=== PATIENT | male | born 2000 | race Caucasian/White ===

== ENCOUNTER 2020-02-27 13:45 | Emergency (ER) | payer MEDICAID, SELFPAY ==
[2020-02-27 14:00] VITALS: BP 145/92; PULSE 82; RESP 19; TEMP 36.9; O2SAT 98; BMI 25.0
--- NOTE | 2020-02-27 14:11 | HMH.EDUTC ---
[facility] [place] Clinical Impression: COVID-19 virus test result unknown Disposition: Home, Self-Care Condition on Discharge: Good Instructions: Preventing the Spread of Coronavirus Discharge Instructions Referrals: Swapna Friedman MD [Primary Care Provider] - Time of Disposition: 14:16 Medical Decision Making - Jake Inquiry Pt receiving controlled substance: No Vital Signs: 02/27/20 14:00 Temperature 98.4 F Temperature Source Oral Pulse Rate [Right Brachial] 82 Respiratory Rate 19 Blood Pressure [Right Arm] 145/92 H Blood Pressure Mean [Right Arm] 109 Blood Pressure Source [Right Arm] Automatic Cuff Blood Pressure Position [Right Arm] Sitting 02 Sat by Pulse Oximetry 98 Oxygen Delivery Method Room Air Orders (Tests/Meds): ORDERS Category Date Time Status Covid-19 Nasal PCR Sendout [facility] 02/27/20 13:52 Ordered [facility] [place] HPI - General Chief complaint: Urgent [facility] Stated complaint: covid test Time Seen by Provider: 02/27/20 14:11 Mode of Arrival: Ambulatory Source of Information: Patient Limitations: No Limitations Description of Symptoms (Recalled from Triage Doc. by RN): PATIENT REQUESTING COVID TEST. DENIES SYMPTOMS OR EXPOSURE HEENT Symptoms (Recalled from RN notes): No Resp Symptoms (Recalled from RN notes): No Skin Symptoms (Recalled from RN notes): No MS Symptoms (Recalled from RN notes): No Functional Status (Recalled from RN notes): WNL - History of Present Illness Provider Complaint: 19 yr old male presents for covid test. pt states no symptoms. - Related Data Allergies Allergy/AdvReac Type Severity Reaction Status Date / Time No Known Allergies Allergy Verified 02/27/20 14:10 - Worker's Comp Is this a Worker's Comp case?: No [facility] History - Hepatitis A Screen Drug use history?: No High risk sexual behaviors?: No History of sexually transmitted infection?: No Currently employed?: No Childcare worker?: No Do you have indoor plumbing?: Yes Do you have electricity?: Yes Attestation statement:: This patient has been screened for Hepatitis A risk factors. I have reviewed the patient's past medical history: Yes - Social History Alcohol Intake: never Occupational Status: other ROS Obtained: Yes Systems reviewed as appropriate & no additional complaints - Constitutional Constitutional: Reports system reviewed and no additional complaints, except as docu, Denies body ache, Denies fever(s) - Eyes Eyes: Reports system reviewed and no additional complaints, except as docu, Denies itchy eyes - ENT Ears, Nose, Mouth, and Throat: Reports system reviewed and no additional complaints, except as docu, Denies sore throat - Cardiovascular Cardiovascular: Reports system reviewed and no additional complaints, except as docu, Denies chest pain - Respiratory Respiratory: Yes system reviewed and no additional complaints, except as docu, No change in phlegm color - Gastrointestinal Gastrointestingal: Reports: system reviewed and no additional complaints, except as docu. Denies: bloating - Genitourinary Male Genitourinary: Reports system reviewed and no additional complaints, except as docu - Musculoskeletal Musculoskeletal: Reports system reviewed and no additional complaints, except as docu, Denies decreased muscle mass - Integumentary/Breasts Skin/Breast: Reports system reviewed and no additional complaints, except as docu, Denies rash - Neurologic Neurologic: Reports system reviewed and no additional complaints, except as docu, Denies dizziness - Endocrine Endocrine: Reports system reviewed and no additional complaints, except as docu, Denies fatigue - Hematologic/Lymphatic Henatologic/Lymphatic: Reports system reviewed and no additional complaints, except as docu, Denies lymphadenopathy - Allergic/Immunologic Allergic/Immunologic: Reports system reviewed and no additional complaints, except as docu, Denies itchy eyes Physical Exam -
[2020-02-27 14:17] VITALS: BP 145/92; PULSE 82; RESP 19; TEMP 36.9; O2SAT 98
[2020-02-29 10:16] LABS: Covid-19 Nasal PCR Sendout UK Not Detected
== END 2020-02-27 14:20 | disposition home or self-care (01) ==
PROVIDERS: Emergency Provider Nurse Practitioner Family; PCP Family Medicine
DX: Z20.828 Contact with and (suspected) exposure to other viral communicable diseases (principal)
CPT/HCPCS: 99201; U0003

== ENCOUNTER 2020-08-25 11:46 | Emergency (ER) | payer OTHER, SELFPAY ==
[2020-08-25 11:50] VITALS: BP 140/78; PULSE 102; RESP 22; TEMP 39.1; O2SAT 97; BMI 28.3
--- NOTE | 2020-08-25 12:21 | HMH.EDUTC ---
[facility] [place] Clinical Impression: Viral syndrome, Fever of unknown origin Disposition: Home, Self-Care Condition on Discharge: Good Instructions: DI for Viral Syndrome, DI for Fever (Symptom) -- Adult Additional Instructions: *Monitor Temp, Over the counter Motrin or Tylenol as directed/as needed Tylenol every 4 hours and Motrin every 6 hours (as long as your family doctor has told you that you can take it) for fever or pain. and straight to ER if unable to lower temp less than 101.0 after medication given *Warm salt water gargles may help to soothe the throat *Throat Lozenges *Warm fluids like tea with honey may help to soothe the throat *Sleep elevated *Humidifier/Vaporizer Your throat swab was sent for culture. Those results are typically sent to your primary care. Be sure to follow up in 2-3 days with your family doctor/primary care physician if no improvement so they can review those result and treat if necessary. If you don?t have a primary care doctor, I recommend you get one but in the mean time, you will have to return to a walk in clinic Follow up IMMEDIATELY for new or worsening symptoms or no Noticeable improvement over the next 48-72 hours. 911 for difficulty breathing or swallowing You were tested for today for COVID19 your test result should be back in the next 24-48 hours, you may call to the [facility] to see if your test results are back in the next 48 hours [phone] [facility] hours are 9am-9pm You was given a handout with instructions for Self Quarantine and Self isolation for while you wait on test results and what to do if they are positive If you are positive the Health Dept will be contacting you also Prescriptions: Ondansetron [Zofran 4mg ODT] 4 mg PO TIDP PRN #10 tab PRN Reason: Nausea Transmission Status: Received by [facility]/pharmacy #[id number] Referrals: Swapna Friedman MD [Primary Care Provider] - As needed Forms: Work/School Release Time of Disposition: 17:04 Medical Decision Making - Jake Inquiry Pt receiving controlled substance: No Jake was queried for this patient: No Vital Signs: 08/25/20 11:50 08/25/20 12:59 Temperature 102.3 F H 100.2 F H Temperature Source Oral Oral Pulse Rate 102 H Pulse Rate [Right Brachial] 102 H Respiratory Rate 22 22 Blood Pressure 140/78 Blood Pressure [Right Arm] 140/78 Blood Pressure Mean [Right Arm] 98 Blood Pressure Source [Right Arm] Automatic Cuff Blood Pressure Position [Right Arm] Sitting 02 Sat by Pulse Oximetry 97 Oxygen Delivery Method Room Air - Lab Data Lab results reviewed: Yes: I reviewed the patient's lab results. Lab Results 08/25/20 12:00: Influenza Type A Ag Negative, Influenza Type B Ag Negative 08/25/20 12:00: Strep Scn Rapid Clinic Negative Orders (Tests/Meds): ED MEDICATIONS Discontinued Medications Generic Name Dose Route Start Last Admin Trade Name Freq PRN Reason Stop Dose Admin Acetaminophen 650 mg 08/25/20 12:09 08/25/20 12:12 Acetaminophen 325mg Tab PO 08/25/20 12:10 650 mg ONCE ONE Administration ORDERS Category Date Time Status Strep Screen Confirmation Stat Micro 08/25/20 12:00 Received Medical Decision Narrative: Patient fever now decreased and patient states that headache is better, discussed lab work here in the [facility] with Blood draw and patient advised that he would follow up with his PCP if his COVID test was negative for further evaluation and testing [facility] [place] - General Stated complaint: fever,headache Time Seen by Provider: 08/25/20 12:22 Mode of Arrival: Ambulatory Source of Information: Patient Limitations: No Limitations Description of Symptoms (Recalled from Triage Doc. by RN): PATIENT C/O FEVER, HEADACHE, NAUSEA, AND DIZZINESS SINCE YESTERDAY HEENT Symptoms (Recalled from RN notes): Yes Resp Symptoms (Recalled from RN notes): No Skin Symptoms (Recalled from RN notes): No MS Symptoms (Recalled from RN notes): No Functional Status (Recalled from
[2020-08-25 12:59] VITALS: BP 140/78; PULSE 102; RESP 22; TEMP 37.9; O2SAT 97
[2020-08-25 13:02] LABS: UTC Influenza A Antigen Negative (Negative); UTC Influenza B Antigen Negative (Negative); UTC Strep Screen (Rapid) Negative (Negative)
== END 2020-08-25 13:03 | disposition home or self-care (01) ==
PROVIDERS: Emergency Provider Nurse Practitioner; PCP Family Medicine
DX: B34.9 Viral infection, unspecified (principal); Z20.822 Contact with and (suspected) exposure to COVID-19
CPT/HCPCS: 87804; 87880; 99202; G0463; U0003